=== PATIENT | male | born 1965 | race Caucasian/White ===

== ENCOUNTER 2019-09-23 11:18 | Day surgery (SDC) | payer BC ==
[~2019-09-23] VITALS: Ht 175.3 cm; Wt 122.5 kg
[~2019-09-23 11:18] MED LIST: ANDR1.62 TOP; LR 1,000 ML IV ONE; SILD50TA PO; TELM1TAB3 PO; ceFAZolin SOD 2 GM in IV 1 EA IV ONE
[2019-09-23] MEDS ORDERED: LIDOCAINE 2% INJ 100 MG/5 ML SDV (FOR ANES.) As Ordered ONE (11:48)
[2019-09-23] MEDS ORDERED: dexameTHASONE 4 MG/ML 1ML VIAL (J1100) As Ordered ONE (11:48)
[2019-09-23] MEDS ORDERED: propofoL 200 MG/20 ML VIAL As Ordered ONE ×2 (11:48→14:28)
[2019-09-23] MEDS ORDERED: ONDANSETRON 4MG/2ML VIAL (J2405) As Ordered ONE (11:48)
[2019-09-23] MEDS ORDERED: MIDAZOLAM INJ 2 MG/2 ML VIAL (J2250) As Ordered ONE (14:09)
[2019-09-23] MEDS ORDERED: fentaNYL 100 MCG/2 ML INJECTION (J3010) As Ordered ONE ×2 (14:09→15:46)
[2019-09-23] MEDS ORDERED: ACETAMINOPHEN 1000MG 100ML IV BTL (OFIRMEV) (J0131 PER 10MG) As Ordered ONE (14:44)
[2019-09-23] MEDS ORDERED: BUPIVACAINE/EPIN 0.25% 30 ML VIAL As Ordered ONE (16:07)
[2019-09-23] MEDS ORDERED: oxyCODONE 5MG TAB PO PRN ×3 (16:45→17:46)
[2019-09-23] MEDS ORDERED: LR 1,000 ML IV SCH (16:45)
[2019-09-23] MEDS ORDERED: ONDANSETRON 4MG/2ML VIAL (J2405) IV PRN (16:45)
[2019-09-23] MEDS ORDERED: fentaNYL 100 MCG/2 ML INJECTION (J3010) IV PRN (16:45)
[2019-09-23 17:20] VITALS: BP 130/70
--- NOTE | 2019-09-23 17:25 | REP ---
Left wrist series: Nine views, intraoperative. History: Left scapholunate advanced collapse. Intraoperative imaging. No comparison imaging. 31.7 seconds of fluoroscopy time is reported. Findings: A sequence of nine last image hold fluoroscopically obtained spot radiographs of the wrist document operative fixation of the carpal bones. Electronically Signed by Akhil Prasad MD 09/24/2019 07:47 A
--- NOTE | 2019-09-23 19:35 | RO ---
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 PROCEDURE: Left extensor tenosynovectomy of compartment #4, PIN neurectomy along with scaphoidectomy and ectomy and a four-corner fusion. SURGEON: Chester Kuo MD GATE CLERK: Joelle Johnson who was essential for retraction during pandey portions of the procedure. ANESTHESIA: General. PREOPERATIVE ANTIBIOTICS: 2 grams of Ancef. COMPLICATIONS: None. BLOOD LOSS: Minimal. TOURNIQUET TIME: 90 minutes. SPECIMENS: None. IMPLANTS: DePuy jorge luis. INDICATIONS: This is a 53-year-old male who has failed nonoperative modes of treatment. We discussed the risks and benefits of surgical intervention, including, but not limited to, infection, damage to surrounding structures, incomplete relief, and the patient wished to proceed. DESCRIPTION OF PROCEDURE: The patient was brought back to the operating room (OR) in the supine position, underwent general anesthesia, at which point the left arm was prepped and draped in the usual fashion. We then had a time-out to confirm side, site and surgery. We then injected 30 mL of 0.25% Marcaine with epinephrine overlying the incisions, at which point we elevated the tourniquet up with an Esmarch with 250 mmHg. We then made a longitudinal incision over the dorsum of the hand along the 3rd ray over Naseem's tubercle. We then sharply dissected subcutaneous tissue careful to control superficial bleeding, I identified superficial nerves, at which point we encountered the large mass in the radial aspect of the wrist. We released the extensor pollicis longus (EPL) from its compartment and elevated up the 4th compartment. We entered the 4th compartment in order to fully identify this mass, which was in extensor tenosynovium. This was debrided both distally and proximally along with some debridement of the tendons as they were frayed. However, there were no significant tears within them. Once this was completed, we then made a T-capsulotomy within the dorsal wrist capsule, exposing the carpals. We then isolated the scaphoid using a combination of #15 blade, [place] blade, rongeur and osteotome and excised it. We then took a shelf off of the radial styloid, careful to preserve radioscaphocapitate ligament. At this point, we placed a K-wire within the lunate, and used it, in combination with flexion of the wrist, to open the inner carpal joint. We then used the curettes to denude all the cartilage from the lunate, capitate, hamate and triquetrum. Once this was completed, we used a bur to further remove any sclerotic bone, at which point we made an osteotomy at Naseem's tubercle to obtain autograft from the distal radius cancellous graft. This was then inserted into the inner carpal joint. We then reduced the SLAC deformity of the lunate extension using the K-wire, at which point we placed an 11 x 8 mm staple into the capitate-lunate. Once this was well fused, we then placed an additional staple between the lunate and triquetrum, and one more additionally between the triquetrum-hamate, the later two being 11 x 10. We confirmed the placement of these jorge luis on both AP and lateral. We were happy with our reduction. At this point, we irrigated the wounds thoroughly, closed the capsule with interrupted #2-0 Ethibond sutures, closed the extensor retinaculum with interrupted #2-0 Ethibond suture as well, and then subcutaneous tissue with #3-0 Vicryl and skin with #3-0 nylon, Adaptic gauze, sterile Webril was placed. The patient was placed into a volar resting splint, tourniquet was let down, patient was awakened and taken to the post-anesthesia care unit (PACU) in stable condition. POSTOPERATIVE PLAN: The patient will work on finger range of motion and pain control. Will see him in the office at 2 weeks for suture removal and placement into a short-arm cast which they will be maintained for 4 weeks total. Patient expressed understanding and agreement with that ahead of time.
== END 2019-09-23 17:45 | disposition home or self-care (01) ==
LOC: M SDC 11:18
PROVIDERS: ATTEND Orthopaedic Surgery Hand Surgery
DX: M12.542 Traumatic arthropathy, left hand (principal); M19.032 Primary osteoarthritis, left wrist; I10 Essential (primary) hypertension; Z79.899 Other long term (current) drug therapy; N52.9 Male erectile dysfunction, unspecified
CPT/HCPCS: 25118; 25825; 64772; 76000; C1713; J0131; J0690; J1100; J2250; J2405; J3010